=== PATIENT | female | born 1955 | race Caucasian/White ===

== ENCOUNTER 2016-07-08 14:10 | Emergency (ER) | payer BC ==
[2016-07-08 14:30] VITALS: BP 138/87; PULSE 82; RESP 13; TEMP 98.5; O2SAT 92
--- NOTE | 2016-07-08 15:14 | EDPHY ---
H & P Stated Complaint: Skiing today and fell injuring left knee Time Seen by Provider: 07/08/16 15:13 HPI/ROS: CHIEF COMPLAINT: Right wrist pain, left knee pain HISTORY OF PRESENT ILLNESS: The patient presents to the ED with complaints of right wrist pain and left knee pain after she fell while skiing. The patient did not strike her head or lose consciousness. The patient denies chest pain, abdominal pain, back pain, numbness, weakness or additional traumatic complaints. The patient does report a prior history of right wrist surgery as well as right ACL surgery. She does have a sensation of medial instability in her left knee. The patient denies any additional complaints. Her pain is moderate in nature. REVIEW OF SYSTEMS: A comprehensive 10 point review of systems is otherwise negative aside from elements mentioned in the history of present illness. Source: Patient Exam Limitations: No limitations - Personal History Current Tetanus/Diphtheria Vaccine: Yes Current Tetanus Diphtheria and Acellular Pertussis (TDAP): Yes - Medical/Surgical History Hx Asthma: No Hx Chronic Respiratory Disease: No Hx Diabetes: No Hx Cardiac Disease: No Hx Renal Disease: No Hx Cirrhosis: No Hx Alcoholism: No Hx HIV/AIDS: No Hx Splenectomy or Spleen Trauma: No Other PMH: hyperlipidemia - Social History Smoking Status: Never smoked - Physical Exam Exam: General Appearance: Alert, no distress Head: Atraumatic Eyes: Pupils equal, round, reactive ENT, Mouth: No hemotympanum, no oral trauma Neck: Nontender, trachea midline Respiratory: No chest wall tender, subcutaneous air, lungs clear bilaterally Cardiovascular: Regular rate and rhythm Abdomen: Abdomen is soft and nontender, pelvis stable Skin: No lacerations, No abrasion Back: No midline T/L/S pain Extremities: Tenderness to palpation right distal radius, no deformity, tenderness to palpation along the left MCL with laxity noted Neurological: A&Ox3, normal motor function, normal sensory exam Constitutional: Initial Vital Signs Temperature (C) 36.9 C 07/08/16 14:25 Heart Rate 82 07/08/16 14:25 Respiratory Rate 13 07/08/16 14:25 Blood Pressure 138/87 H 07/08/16 14:25 O2 Sat (%) 92 07/08/16 14:25 O2 Delivery Mode Room Air Allergies/Adverse Reactions: Penicillins Allergy (Verified 07/08/16 14:24) Home Medications: Medication Instructions Recorded Hydrocodone/APAP 5/325 [[place]us 1 - 2 each PO Q6 PRN #20 tab 07/08/16 5/325] Lipitor 07/08/16 Medical Decision Making - Diagnostics Imaging: Right wrist x-ray: Hardware intact, no acute fracture Left knee x-ray: Questionable small avulsion involving the tibial spine otherwise no acute fracture Images reviewed by myself. Formal interpretation by Radiology pending ED Course/Re-evaluation: The patient presents to the ED after a fall skiing. She arrives with a GCS of 15. She is noted to have evidence of a possible ligamentous injury involving her left knee. She is placed in a knee immobilizer and given crutches. The patient has no evidence of an obvious fracture involving her right wrist. The patient will be discharged home and follow up with orthopedic surgeon in [place] when she returns tomorrow. She has been advised to weight bear as tolerated. The patient has been informed that she should follow up within the next week as additional testing and possibly surgery may be indicated for her knee injury. Differential Diagnosis: Differential diagnosis considered includes fracture, sprain, dislocation Departure - Departure Disposition: Home, Routine, Self-Care Clinical Impression: Wrist sprain Qualifiers: Encounter type: initial encounter Laterality: right Qualifier Code: (S63.501A) Unspecified sprain of right wrist, initial encounter Knee MCL sprain Qualifiers: Encounter type: initial encounter Laterality: left Qualifier Code: (S83.412A) Sprain of medial collateral ligament of left knee, initial encounter Condition: Good Instructions: Knee Sprain (ED) Additional Instructions: 1. Crutches and knee immobilizer as needed for comfort. 2. Please return to the emergency department for any chest pain, abdominal pain , numbness, weakness or additional complaints. 3. Take Ibuprofen or Motrin 600 mg by mouth three times a day. 4. [place] as needed for severe pain. 5. Please follow up with an orthopedic surgeon in the next week for evaluation of your knee injury. I do believe you likely have a ligamentous injury which may require additional workup and possibly surgery. Referrals: OUT OF STATE,. [Primary Care Provider] - As per Instructions Prescriptions: Hydrocodone/APAP 5/325 [[place]us 5/325] 1 - 2 each PO Q6 PRN #20 tab PRN Reason: for pain
--- NOTE | 2016-07-08 15:49 | DX ---
Right Wrist, 4 Views, at 2:28 p.m. Clinical History: 61-year-old female with pain and edema after a fall while skiing. Comparison Study: None currently available. Findings: There is an impacted fracture involving the proximal metaphyseal aspect of the thumb metaca rpal. The carpometacarpal alignments are maintained. There is a malleable reconstruction plate secure d by multiple orthopedic screws at the level of the distal radial metadiaphysis, and extending to the subarticular surface. There is no periprosthetic lucency to suggest hardware failure. The bones appe ar mildly demineralized; however, there is no acute carpal fracture or dislocation. The navicular is intact. There is no ulnar variance. Impression: 1. Impacted fracture involving the metaphyseal base of the thumb metacarpal. 2. Sequela of prior ORIF of the distal radius, with no hardware failure. 3. Mild bone demineralization. When clinically feasible, a DEXA scan is suggested.
--- NOTE | 2016-07-08 15:50 | DX ---
Left Knee, 3 Views, at 2:33 p.m. Clinical History: 61-year-old female with knee pain after a skiing injury. Comparison Study: None. Findings: There is some cloth artifact present. The bones are mildly demineralized; however, there is no acute fracture or dislocation. There is a tiny posterior superior degenerative spur. There is no suprapatellar joint effusion. There may be a small loose osteochondral body projected over the medial tibial spine. On the sunrise view, there is no significant patellofemoral joint space narrowing, nor is there any subluxation or tilting. Impression: There is no acute abnormality observed. If there is further clinical concern regarding the patient's knee pain, correlative MR imaging is sug gested.
== END 2016-07-08 16:02 | disposition home or self-care (01) ==
DX: S63.501A Unspecified sprain of right wrist, initial encounter (principal); S83.412A Sprain of medial collateral ligament of left knee, initial encounter; V00.321A Fall from snow-skis, initial encounter; Y99.8 Other external cause status; Y93.23 Activity, snow (alpine) (downhill) skiing, snowboarding, sledding, tobogganing and snow tubing
CPT/HCPCS: L1830; L3908